=== PATIENT | female | born 1950 | race Caucasian/White ===

== ENCOUNTER 2017-04-19 10:18 | Outpatient (CLI) ==
--- NOTE | 2017-04-19 14:25 | MRI ---
MRI of the lumbar spine HISTORY: Back pain. Lumbar spondylosis. COMPARISON: None. PROCEDURE: Multiplanar, multisequence MRI protocol including sagittal T1-weighted, sagittal T2-weig hted, sagittal inversion recovery, coronal T2-weighted, axial T1-weighted and axial T2-weighted sequ ences. FINDINGS: There are five non-rib bearing lumbar vertebrae. Vertebral alignment demonstrates normal lordotic curvature. Vertebral body height is well maintained. Marrow signal is within normal limit s for age. The intervertebral discs are generally well maintained with respect to height and signal . The conus medullaris appears normal in position and configuration and signal. The caliber of the spinal canal is intrinsically within normal limits. The prevertebral and paraspinous soft tissues a ppear to be within normal limits. Segmental analysis: T12-L1: There is a modest disc bulge with the left paramedian protrusion indenting the ventral theca l sac at this level. The spinal canal is not significantly narrowed. The protrusion does not appear to abut or displace the conus. The neural foramina are not stenosed. The conus terminates just belo w this level. L1-L2: There is no significant disc bulge at this level. The spinal canal is not significantly narr owed. The subarticular spaces and lateral recesses are not significantly narrowed. The neural forami na are not stenosed. L2-L3: There is no significant disc bulge at this level. The spinal canal is not significantly narr owed. The subarticular spaces and lateral recesses are not significantly narrowed. The neural forami na are not stenosed. L3-L4: There is no significant disc bulge at this level. The spinal canal is not significantly narr owed. The subarticular spaces and lateral recesses are not significantly narrowed. The neural forami na are not stenosed. There is modest disc intrusion into inferior portion of the foramina. L4-L5: There is no significant disc bulge at this level. The spinal canal is not significantly narr owed. The thecal sac tapers at this level due to the presence of abundant to epidural fat. There is minimal, left greater than right, foraminal narrowing associated with facet arthropathy and disc int rusion. Note is made incidentally of bilateral facet effusions, larger on the right. L5-S1: There is a modest left paracentric disc bulge at this level. The spinal canal is not signifi cantly narrowed. The left S1 nerve root passes between the disc and facet in the subarticular space which is narrowed compared to the right but the nerve root does not appear displaced compressed. The nerve abuts the disc. The neural foramina are not stenosed. IMPRESSION: 1. The lumbar vertebrae are generally well maintained with respect height, alignment and signal for a patient of this age. The intervertebral discs are well maintained with respect height. There is m inimal ventral spondylosis at several levels. 2. There is no significant central canal stenosis at any reviewed levels. Note is made of a left pa ramedian disc protrusion at T12-L1 which indents the ventral lateral thecal sac but does not abut th e conus. There is a similar protrusions seen at T11-T12 on the sagittal images which may abut the c ord however no axial images are available through this area for further evaluation. 3. There is modest asymmetric narrowing of the left subarticular spaces at the L5-S1 level with the left S1 nerve root abutting the disc but not appearing displaced or compressed. 4. There is minimal, left greater than right to foraminal stenosis at L4-5 as discussed in the repor t. There is no significant foraminal stenosis at any reviewed levels. 5. Note is made of prominent epidural lipomatosis with tapering of the thecal sac at about the L4-5 level due to surrounding epidural fat.
== END 2017-04-19 10:19 | disposition home or self-care (01) ==
LOC: RAD 10:18
PROVIDERS: ATTEND Nurse Practitioner
DX: M47.817 Spondylosis without myelopathy or radiculopathy, lumbosacral region (principal)